=== PATIENT | female | born 1975 | race Caucasian/White ===

== ENCOUNTER 2019-04-05 13:27 | Inpatient (IN) | payer OTHER ==
--- NOTE | 2019-04-05 13:38 | PDOC ---
Rapid Medical Evaluation Time Seen by Provider: 04/05/19 13:36 Medical Evaluation: Allergies Allergy/AdvReac Type Severity Reaction Status Date / Time No Known Allergies Allergy Verified 09/27/12 10:10 04/05/19 13:36 I have performed a brief in-person evaluation of this patient. The patient presents with a chief complaint of:epigastric pain w/ vomiting. H/o HLD Pertinent physical exam findings:HR 101 w/ minimal ttp to epigastrium I have ordered the following:labs/ekg The patient will proceed to the ED for further evaluation. 04/05/19 13:47 Discharge Disposition - Diagnosis Epigastric abdominal pain - Discharge Dispostion Condition at time of disposition: Stable - Referrals - Patient Instructions - Post Discharge Activity
[2019-04-05] MEDS ORDERED: SODIUM CHLORIDE 1,000 ML IV STA (14:54)
[2019-04-05] MEDS ORDERED: ACETAMINOPHEN 1000 MG/100 ML VIAL (NON FORMULARY) IVPB ONE ×2 (14:55→21:52)
[2019-04-05] MEDS ORDERED: ACETAMINOPHEN INJECTION 100 ML IVPB ONE (14:58)
--- NOTE | 2019-04-05 15:02 | PDOC ---
History of Present Illness - General Chief Complaint: Pain, Acute Stated Complaint: ABD PAIN Time Seen by Provider: 04/05/19 13:36 History Source: Patient, Family (daughter) Exam Limitations: Language Barrier (Colombian only, translation per daughter) - History of Present Illness Initial Comments: 43 yo F, no PMH, 1 C section, p/w diffuse abdominal pain. Colombian speaking only , daughter providing translation. Pain began 8 days ago with multiple episodes of diffuse abdominal pain, lasting 5 minutes at a time. Yesterday, she developed nausea and had 2 episodes of vomiting. Has not tried anything at home. Endorses reduced appetite and poor intake. Denies CP, SOB, constipation/diarrhea , fevers/chills, urinary changes. 04/05/19 14:58 Past History - Past Medical History Allergies/Adverse Reactions: Allergies Allergy/AdvReac Type Severity Reaction Status Date / Time No Known Allergies Allergy Verified 09/27/12 10:10 Home Medications: Ambulatory Orders Amox-Tr/K Cl [Augmentin 500Mg Tablet] 1 tab PO BID #20 tablet 09/27/12 No Home Medications 0 dose .ROUTE UTDICT 09/27/12 COPD: No Lung CA: No - Surgical History Lung Surgery: No - Immunization History Immunization Up to Date: No - Suicide/Smoking/Psychosocial Hx Smoking Status: No Smoking History: Never smoked Have you smoked in the past 12 months: No Number of Cigarettes Smoked Daily: 0 Information on smoking cessation initiated: No Hx Alcohol Use: No Drug/Substance Use Hx: No Review of Systems - Review of Systems Able to Perform ROS?: Yes Constitutional: Yes: Loss of Appetite. No: Chills, Fever, Weakness HEENTM: No: Eye Pain, Blurred Vision, Double Vision, Throat Pain, Throat Swelling, Difficulty Swallowing, Mouth Swelling Respiratory: No: Cough, Orthopnea, Shortness of Breath Cardiac (ROS): No: Chest Pain, Irregular Heart Rate, Lightheadedness ABD/GI: Yes: Nausea, Poor Appetite, Poor Fluid Intake, Vomiting. No: Abdominal Distended, Abd. Pain w/ defecation, Blood Streaked Bowels, Constipated, Diarrhea , Difficulty Swallowing, Rectal Bleeding : Yes: Flank Pain. No: Burning, Dysuria, Discharge, Frequency Musculoskeletal: Yes: Back Pain Neurological: No: Headache, Numbness, Seizure, Tingling, Dizziness *Physical Exam - Vital Signs Last Vital Signs Temp Pulse Resp BP Pulse Ox 99.6 F 101 H 18 126/87 100 04/05/19 13:37 04/05/19 13:37 04/05/19 13:37 04/05/19 13:37 04/05/19 13:37 - Physical Exam General Appearance: Yes: Appropriately Dressed, Moderate Distress, Other (dry mucous membranes) HEENT: positive: EOMI, LENNOX, Normal ENT Inspection, Normal Voice, Symmetrical, Pharynx Normal, Hearing Grossly Normal Neck: positive: Trachea midline, Normal Thyroid, Supple Respiratory/Chest: positive: Lungs Clear, Normal Breath Sounds. 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 CBC CMP EKG Lipase 1LNS Ofirmev UA/UC upreg. 04/05/19 15:05 WBC 14.2, UA 1+ blood, 1+ ketones, 1+ protein, trace leuk esterase 04/05/19 15:41 Lipase 78 04/05/19 15:45 Ceftriaxone 1g for UTI 04/05/19 15:53 Patient reassessed, sleeping peacefully, pain improved 04/05/19 17:[address] scan. Surgery consultation placed. Plan discussed with patient and family, they are on board. 04/05/19 19:[address] Kumar. Encouraged continuous IV fluids, coverage with Zosyn, ID consult, IR consult for potential drainage, coags (T+S, PTT, PT/INR) 04/05/19 19:28 Patient complaining of feeling hot. Rectal temp 102.5. 04/05/19 21:52 Reassessed, pain down to 5/10. 04/05/19 22:06 *DC/Admit/Observation/Transfer Diagnosis at time of Disposition: Epigastric abdominal pain - Discharge Dispostion Condition at time of disposition: Stable - Referrals - Patient Instructions - Post Discharge Activity
--- NOTE | 2019-04-05 15:16 | PDOC ---
Documentation entered by Forrest Avila SCRIBE, acting as scribe for Andrew Carson MD. Andrew Carson MD: This documentation has been prepared by the Austin michel Elijah, SCRIBE, under my direction and personally reviewed by me in its entirety. I confirm that the documentation accurately reflects all work, treatment, procedures, and medical decision making performed by me. Attending Attestation - Resident Resident Name: Pancho Putnam - ED Attending Attestation I have performed the following: I have examined & evaluated the patient, The case was reviewed & discussed with the resident, I agree w/resident's findings & plan - HPI HPI: 04/05/19 14:53 Patient is a 43 year old female with no reported past medical history who presents to the ED with x8 days of abdominal pain. Patient associates nausea, x2 episodes of vomiting and decreased PO intake. Allergies: NKA Surgical History: - Physicial Exam PE: 04/05/19 15:10 Patient is awake and alert, well-nourished, in no significant distress Normocephalic, atraumatic PERRLA, EOMI, no scleral icterus mm-dry CTA RRR Abdomen is soft, nondistended, suprapubic and right upper quadrant tenderness to palpation is appreciated, bilateral CVA tenderness is noted, no guarding or rebound; - Medical Decision Making 04/05/19 15:15 Patient is a well-appearing 43-year-old female who presents with diffuse abdominal pain of 8 days, most tender in the suprapubic and right upper quadrant , associated with nausea and nonbloody, nonbilious vomiting. Patient noted to be mildly tachycardic and febrile. Differential diagnoses includes UTI versus pyelonephritis versus cholelithiasis versus acute cholecystitis versus appendicitis. Will obtain CBC/CMP/UA/ECG. We'll administer IV fluids. Will obtain CT of abdomen and pelvis. Will reassess.
[2019-04-05 15:30] LABS: BASO % 0.1 % (0-2.0); EOS % 0.1 % (0-4.5); HEMATOCRIT 31.7 % (32.4-45.2); HEMOGLOBIN 10.5 GM/dL (10.7-15.3); LYMPH % 12.2 % (8-40); MCH 28.6 pg (25.7-33.7); MCHC 33.2 g/dl (32.0-36.0); MEAN CELL VOLUME 86.4 fl (80-96); MEAN PLT VOLUME 7.8 fl (7.5-11.1); MONO % 9.8 % (3.8-10.2); NEUT % 77.8 % (42.8-82.8); PLATELET COUNT 368 K/MM3 (134-434); RBC 3.67 M/mm3 (3.60-5.2); RDW 13.9 % (11.6-15.6); WHITE BLOOD COUNT 14.2 K/mm3 (4.0-10.0)
[2019-04-05 15:39] LABS: EPI CELLS 32.7 /HPF (0-5/HPF); HYALINE CASTS 47 /lpf (0-8); PH,URINE 5.5 (5.0-8.0); URINE APPEARANCE TURBID; URINE BACTERIA 425.1 /hpf (NEGATIVE); URINE BILIRUBIN 1+ (NEGATIVE); URINE COLOR DK YELLOW; URINE GLUCOSE (UA) NEGATIVE (NEGATIVE); URINE KETONE 1+ (NEGATIVE); URINE LEUK ESTERASE TRACE (NEGATIVE); URINE NITRITE NEGATIVE (NEGATIVE); URINE PROTEIN 1+ (NEGATIVE); URINE RBC 5 /hpf (0-4); URINE WBC 14 /hpf (0-5)
[2019-04-05 15:50] LABS: ALBUMIN 3.2 g/dl (3.4-5.0); BILIRUBIN,TOTAL 0.2 mg/dL (0.2-1); BLOOD UREA NITROGEN 7.4 mg/dL (7-18); CALCIUM 8.6 mg/dL (8.5-10.1); CREATININE 0.7 mg/dL (0.55-1.3); POTASSIUM 3.4 mmol/L (3.5-5.1); TOT PROT 7.1 g/dl (6.4-8.2)
[2019-04-05] MEDS ORDERED: CEFTRIAXONE 1,000 MG in DEXTROSE 5%-WATER - 50 ML IVPB ONE (15:52)
[2019-04-05 16:04] LABS: URINE CRYSTALS AMORPHOUS SEEN /hpf
[2019-04-05] MEDS ORDERED: KCL 10 MEQ IVPB 10 MEQ/100 ML INFUS.BAG IVPB SCH (17:30)
[2019-04-05] MEDS ORDERED: CEFTRIAXONE 1 GM/50 ML BAG ONE (18:43)
[2019-04-05] MEDS ORDERED: SODIUM CHLORIDE 0.9% 500 ML INFUS.BAG IV ONE (18:55)
[2019-04-05] MEDS ORDERED: SODIUM CHLORIDE 1,000 ML IV SCH ×4 (19:00→21:31)
[2019-04-05] MEDS ORDERED: KCL 10 MEQ IVPB 10 MEQ/100 ML INFUS.BAG IVPB ONE (19:16)
[2019-04-05] MEDS: PIPERACILLIN/TAZOB 4.5 GM 4.5 GM in DEXTROSE 5%-WATER 100 ML IVPB ONE ×2 (19:33→19:54)
[2019-04-05] MEDS ORDERED: PIPERACILLIN/TAZOB 4.5 GM 4.5 GM/100 ML BAG IVPB ONE (19:44)
[2019-04-05] MEDS ORDERED: morphine CARPU-JECT 4 MG/1 ML DISP.SYRIN IVPUSH ONE (20:50)
[2019-04-05] MEDS ORDERED: morphine SULFATE 4 MG/ML VIAL ONE (21:17)
[2019-04-05] MEDS ORDERED: MORPHINE SULFATE 2 MG/ML VIAL IVPUSH PRN (21:28)
--- NOTE | 2019-04-05 21:32 | HP ---
Admitting History and Physical - Primary Care Physician PCP: Milton Watters - Admission History of Present Illness: 43 yo F, no PMH, 1 C section, p/w diffuse abdominal pain. Mauritanian speaking only , daughter providing translation. Pain began 8 days ago with multiple episodes of diffuse abdominal pain, lasting 5 minutes at a time. Yesterday, she developed nausea and had 2 episodes of vomiting. Has not tried anything at home. - Smoking History Smoking history: Never smoked Have you smoked in the past 12 months: No Aproximately how many cigarettes per day: 0 - Alcohol/Substance Use Hx Alcohol Use: No Home Medications - Allergies Allergies/Adverse Reactions: Allergies Allergy/AdvReac Type Severity Reaction Status Date / Time No Known Allergies Allergy Verified 09/27/12 10:10 - Home Medications Home Medications: Ambulatory Orders Amox-Tr/K Cl [Augmentin 500Mg Tablet] 1 tab PO BID #20 tablet 09/27/12 No Home Medications 0 dose .ROUTE UTDICT 09/27/12 Physical Examination Vital Signs: Vital Signs Temperature 99.6 F 04/05/19 15:32 Pulse Rate 109 H 04/05/19 18:54 Respiratory Rate 18 04/05/19 18:54 Blood Pressure 132/77 04/05/19 18:54 O2 Sat by Pulse Oximetry (%) 99 04/05/19 18:54 Constitutional: Yes: No Distress HENT: Yes: Atraumatic Neck: Yes: Supple Cardiovascular: Yes: Regular Rate and Rhythm Respiratory: Yes: CTA Bilaterally Gastrointestinal: Yes: Normal Bowel Sounds, Tenderness (llq /diffuse ...moderate in intensity) Extremities: Yes: WNL Neurological: Yes: Alert, Oriented Labs: CBC, BMP 04/05/19 15:11 04/05/19 15:11 Imaging - Results Cat Scan: Report Reviewed Problem List - Problems (1) Epigastric abdominal pain Assessment/Plan: prn pain meds Code(s): R10.13 - EPIGASTRIC PAIN (2) Diverticulitis Assessment/Plan: npo, ivf iv abx Code(s): K57.92 - DVTRCLI OF INTEST, PART UNSP, W/O PERF OR ABSCESS W/O BLEED Assessment/Plan Laboratory Tests 04/05/19 04/05/19 04/05/19 15:11 15:11 15:11 WBC 14.2 H RBC 3.67 Hgb 10.5 L Hct 31.7 L MCV 86.4 MCH 28.6 MCHC 33.2 RDW 13.9 Plt Count 368 MPV 7.8 Absolute Neuts (auto) 11.1 H Neutrophils % 77.8 Lymphocytes % 12.2 Monocytes % 9.8 Eosinophils % 0.1 Basophils % 0.1 Nucleated RBC % 0 Sodium 139 Potassium 3.4 L Chloride 104 Carbon Dioxide 28 Anion Gap 7 L BUN 7.4 Creatinine 0.7 Est GFR (CKD-EPI)AfAm 123.86 Est GFR (CKD-EPI)NonAf 106.87 Random Glucose 92 Calcium 8.6 Total Bilirubin 0.2 AST 17 ALT 23 Alkaline Phosphatase 106 Total Protein 7.1 Albumin 3.2 L Lipase Urine Color Urine Appearance Urine pH Ur Specific [place] Urine Protein Urine Glucose (UA) Urine Ketones Urine Blood Urine Nitrite Urine Bilirubin Urine Urobilinogen Ur Leukocyte Esterase Urine WBC (Auto) Urine RBC (Auto) Urine Casts (Auto) U Pathogenic Cast Auto U Epithel Cells (Auto) U Sm Round Cell (Auto) Urine Crystals (Auto) Urine Bacteria (Auto) Urine HCG, Qual Negative 04/05/19 04/05/19 15:11 15:11 WBC RBC Hgb Hct MCV MCH MCHC RDW Plt Count MPV Absolute Neuts (auto) Neutrophils % Lymphocytes % Monocytes % Eosinophils % Basophils % Nucleated RBC % Sodium Potassium Chloride Carbon Dioxide Anion Gap BUN Creatinine Est GFR (CKD-EPI)AfAm Est GFR (CKD-EPI)NonAf Random Glucose Calcium Total Bilirubin AST ALT Alkaline Phosphatase Total Protein Albumin Lipase 78 Urine Color Dk yellow Urine Appearance Turbid Urine pH 5.5 Ur Specific [place] 1.036 H Urine Protein 1+ H Urine Glucose (UA) Negative Urine Ketones 1+ H Urine Blood Trace Urine Nitrite Negative Urine Bilirubin 1+ H Urine Urobilinogen 1.0 Ur Leukocyte Esterase Trace Urine WBC (Auto) 14 Urine RBC (Auto) 5 Urine Casts (Auto) 47 U Pathogenic Cast Auto None seen U Epithel Cells (Auto) 32.7 U Sm Round Cell (Auto) None seen Urine Crystals (Auto) Amorphous seen Urine Bacteria (Auto) 425.1 Urine HCG, Qual Active Medications Generic Name Dose Route Start Last Admin Trade Name Freq PRN Reason Stop Dose Admin Sodium Chloride 1,000 mls @ 100 mls/hr 04/05/19 19:00 04/05/19 19:54 Normal Saline - IV 100 mls/hr ASDIR IZABELLA Administration Sodium Chloride 1,000 mls @ 100 mls/hr 04/05/19 19:30 04/05/19 19:55 Normal Saline - IV 100 mls/hr ASDIR IZABELLA Administration Piperacillin Sod/Tazobactam 100 mls @ 200 mls/hr 04/06/19 04:00 Sod 4.5 gm/ Dextrose IVPB 04/06/19 20:29 Q8H IZABELLA Protocol Piperacillin Sod/Tazobactam 100 mls @ 200 mls/hr 04/07/19 04:00 Sod 4.5 gm/ Dextrose IVPB Q8H IZABELLA Sodium Chloride 1,000 mls @ 125 mls/hr 04/05/19 21:31 Normal Saline - IV ASDIR IZABELLA Morphine Sulfate 2 mg 04/05/19 21:28 Morphine Sulfate IVPUSH Q4H PRN PAIN LEVEL 4 - 6
[2019-04-05 21:33] LABS: INR 1.25 (0.83-1.09); PROTHROMBIN TIME (PATIENT) 14.8 SEC (9.7-13.0)
[2019-04-05 21:35] LABS: ACTIVATED PTT 43.5 SECONDS (25.2-36.5)
[2019-04-05] MEDS ORDERED: FAMOTIDINE 20 MG/50 ML IVPB 20 MG/50 ML MG IVPB ONE (21:45)
[2019-04-06] MEDS ORDERED: FAMOTIDINE 20 MG/50 ML IVPB 20 MG/50 ML MG IVPB ONE (00:11)
[2019-04-06] MEDS ORDERED: MORPHINE SULFATE 2 MG/ML VIAL ONE (02:34)
[2019-04-06] MEDS ORDERED: ACETAMINOPHEN INJECTION 100 ML IVPB ONE (02:37)
[2019-04-06] MEDS ORDERED: PIPERACILLIN/TAZOB 4.5 GM 4.5 GM in DEXTROSE 5%-WATER 100 ML IVPB SCH (04:00)
[2019-04-06 04:48] VITALS: BMI 33.4
[2019-04-06] MEDS ORDERED: PIPERACILLIN/TAZOBACTAM 4.5 GM VIAL IVPB ONE (05:00)
[2019-04-06] MEDS ORDERED: DEXTROSE 5%-WATER 100 ML IVPB ONE (05:00)
[2019-04-06 07:09] LABS: BASO % 0.1 % (0-2.0); EOS % 0.2 % (0-4.5); HEMATOCRIT 28.9 % (32.4-45.2); HEMOGLOBIN 9.7 GM/dL (10.7-15.3); LYMPH % 7.7 % (8-40); MCH 28.8 pg (25.7-33.7); MCHC 33.5 g/dl (32.0-36.0); MEAN PLT VOLUME 8.1 fl (7.5-11.1); MONO % 9.2 % (3.8-10.2); NEUT % 82.8 % (42.8-82.8); PLATELET COUNT 311 K/MM3 (134-434); RBC 3.36 M/mm3 (3.60-5.2); RDW 14.1 % (11.6-15.6); WHITE BLOOD COUNT 14.1 K/mm3 (4.0-10.0)
[2019-04-06 07:24] LABS: ALBUMIN 2.6 g/dl (3.4-5.0); BILIRUBIN,TOTAL 0.4 mg/dL (0.2-1); BLOOD UREA NITROGEN 3.1 mg/dL (7-18); CALCIUM 7.7 mg/dL (8.5-10.1); CREATININE 0.5 mg/dL (0.55-1.3); TOT PROT 5.9 g/dl (6.4-8.2)
[2019-04-06 07:36] LABS: POTASSIUM 2.9 mmol/L (3.5-5.1)
--- NOTE | 2019-04-06 09:24 | CON.GI ---
Consult Consult Specialty:: GI Referred by:: Dr. Rosario Reason for Consultation:: Diverticulitis - History of Present Illness Chief Complaint: abdominal pain History of Present Illness: 43F presenting to ER last night for evaluation of 8 days of abdominal pain. She described the pain as left sided and pelvic in location, worsening last night prompting her eval. She denied rectal bleeding or diarrhea. She did have episodes oa nausea with vomiting. In the ER WBC was noted to be 14.2K. with temp 99.6 P: 101 BP: 126/87. She had a CT scan revealing diverticulosis of the sigmoid with inflammatory changes along the mid 1/3 of the sigmoid with extraluminal air c/w focal perforation along with a 4 v 3.4cm air/fluid structure c/w local perf vs. abscess. Pain persists and she is requiring IV analgesia. Temp was 102.4 9pm last night. She denied similar episodes in the past. She has never had an upper endoscopy or colonoscopy. There is no family history of colorectal cancer / IBD. 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 Place of : Other ([place]) History of Recent Travel: No Home Medications - Allergies Allergies/Adverse Reactions: Allergies Allergy/AdvReac Type Severity Reaction Status Date / Time No Known Allergies Allergy Verified 09/27/12 10:10 - Home Medications Home Medications: Ambulatory Orders Amox-Tr/K Cl [Augmentin 500Mg Tablet] 1 tab PO BID #20 tablet 09/27/12 No Home Medications 0 dose .ROUTE UTDICT 09/27/12 Family Disease History - Family Disease History Family Disease History: Other: Father (Alive: healthy), Mother (Alive: Low blood pressure), Brother (5, healthy), Sister (6, healthy), Son (2, healthy), Daughter (2, healthy) Other Family History: No family history of colorectal cancer or other GI malignancy Review of Systems - Review of Systems Constitutional: reports: Chills Cardiovascular: denies: Chest Pain Respiratory: denies: Cough Gastrointestinal: reports: Abdominal Pain, Vomiting. denies: Constipation, Diarrhea, Melena, Rectal Bleeding Genitourinary: reports: Frequency Physical Exam-GI Vital Signs: Vital Signs Temperature 102.5 F H 04/05/19 21:50 Pulse Rate 105 H 04/06/19 02:31 Respiratory Rate 25 H 04/06/19 02:31 Blood Pressure 114/73 04/06/19 02:31 O2 Sat by Pulse Oximetry (%) 96 04/06/19 02:31 Constitutional: Yes: Calm Eyes: No: Sclera Icterus Cardiovascular: Yes: Regular Rate and Rhythm Respiratory: Yes: CTA Bilaterally Gastrointestinal Inspection: Yes: Scars (Low horizontal pelvic surgical scar). No: Distention ...Auscultate: Yes: Normoactive Bowel Sounds ...Palpate: Yes: Soft, Tenderness (TTP diffusely, more prominent in the pelvis and LLQ) ...Percussion: No: Tympanitic Edema: No (No LE edema) Neurological: Yes: Alert, Oriented Labs: CBC, BMP 04/06/19 05:20 04/06/19 05:20 INR, PTT INR 1.25 (0.83-1.09) H 04/05/19 20:45 Hepatic Panel Total Bilirubin 0.4 mg/dL (0.2-1) 04/06/19 05:20 AST 13 U/L (15-37) L 04/06/19 05:20 ALT 18 U/L (13-61) 04/06/19 05:20 Alkaline Phosphatase 85 U/L (45-117) 04/06/19 05:20 Albumin 2.6 g/dl (3.4-5.0) L 04/06/19 05:20 Problem List - Problems (1) Diverticulitis Assessment/Plan: Acute complicated diverticulitis: 1st episode Still with Marked TTP on physical exam. slightly improved per the patient Surgery to see patient. Attempting conservative management with IV Abx / IR drainage of per colonic abscesss IV Abx per ID NPO IV hydration AM Labs Close monitoring of abdominal exam Code(s): K57.92 - DVTRCLI OF INTEST, PART UNSP, W/O PERF OR ABSCESS W/O BLEED
--- NOTE | 2019-04-06 10:25 | CON.ID ---
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 History of Recent Travel: No Home Medications - Allergies Allergies/Adverse Reactions: Allergies Allergy/AdvReac Type Severity Reaction Status Date / Time No Known Allergies Allergy Verified 09/27/12 10:10 - Home Medications Home Medications: Ambulatory Orders Amox-Tr/K Cl [Augmentin 500Mg Tablet] 1 tab PO BID #20 tablet 09/27/12 No Home Medications 0 dose .ROUTE UTDICT 09/27/12 Family Disease History - Family Disease History Family Disease History: Other: Father (Alive: healthy), Mother (Alive: Low blood pressure), Brother (5, healthy), Sister (6, healthy), Son (2, healthy), Daughter (2, healthy) Other Family History: No family history of colorectal cancer or other GI malignancy Physical Exam Vital Signs: Vital Signs Temperature 102.5 F H 04/05/19 21:50 Pulse Rate 105 H 04/06/19 02:31 Respiratory Rate 25 H 04/06/19 02:31 Blood Pressure 114/73 04/06/19 02:31 O2 Sat by Pulse Oximetry (%) 96 04/06/19 02:31 Labs: CBC, BMP 04/06/19 05:20 04/06/19 05:20
[2019-04-06] MEDS ORDERED: MIDAZOLAM HCL 2 MG/2 ML SINGLE DOSE VIAL IVPUSH ONE (12:00)
[2019-04-06] MEDS ORDERED: DEXTROSE 5%-WATER - 50 ML IVPB ONE ×2 (12:13→17:31)
[2019-04-06] MEDS ORDERED: PIPERACILLIN/TAZOBACTAM 3.375 GM VIAL IVPB ONE ×2 (12:13→17:31)
[2019-04-06] MEDS: PIPERACILLIN/TAZOB 3.375 GM 3.375 GM in DEXTROSE 5%-WATER - 50 ML IVPB SCH ×2 (12:18→17:38)
[2019-04-06] MEDS: KCL 10 MEQ IVPB 10 MEQ/100 ML INFUS.BAG IVPB SCH ×4 (12:46→17:41)
--- NOTE | 2019-04-06 14:06 | EKG ---
Test Reason : Blood Pressure : / mmHG Vent. Rate : 097 BPM Atrial Rate : 097 BPM P-R Int : 134 ms QRS Dur : 074 ms QT Int : 342 ms P-R-T Axes : 059 005 025 degrees QTc Int : 434 ms NORMAL SINUS RHYTHM POSSIBLE LEFT ATRIAL ENLARGEMENT BORDERLINE ECG NO PREVIOUS ECGS AVAILABLE Confirmed by ARGENIS MUJICA, RIMA ([id number]) on 04/06/2019 2:06:06 PM Referred By: Confirmed By:RIMA MORE MD
--- NOTE | 2019-04-06 14:06 | CONSULT ---
Consult Consult Specialty:: General Surgery Referred by:: Simeon Putnam Reason for Consultation:: diverticulitis with abscess - History of Present Illness Chief Complaint: abdominal pain, n/v History of Present Illness: Pt sleeping soundly on first attempt to see her night. Will return for consultation in am. 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 Travel: No Home Medications - Allergies Allergies/Adverse Reactions: Allergies Allergy/AdvReac Type Severity Reaction Status Date / Time No Known Allergies Allergy Verified 09/27/12 10:10 - Home Medications Home Medications: Ambulatory Orders NK [No Known Home Medication] 04/06/19 Family Disease History - Family Disease History Family Disease History: Other: Father (Alive: healthy), Mother (Alive: Low blood pressure), Brother (5, healthy), Sister (6, healthy), Son (2, healthy), Daughter (2, healthy) Other Family History: No family history of colorectal cancer or other GI malignancy Physical Exam Vital Signs: Vital Signs Temperature 102.5 F H 04/05/19 21:50 Pulse Rate 88 04/06/19 11:18 Respiratory Rate 21 H 04/06/19 11:18 Blood Pressure 135/82 04/06/19 11:18 O2 Sat by Pulse Oximetry (%) 100 04/06/19 11:18 Labs: CBC, BMP 04/06/19 05:20 04/06/19 05:20 Imaging - Results Cat Scan: Report Reviewed, Image Reviewed (images reviewed - sigmoid diverticulitis with abscess anterior to sigmoid in pelvis/lower abdomen, likely accessible for IR drainage, focal/local few air pockets, no gross free air, no obstruction) Problem List - Problems (1) Diverticulitis of large intestine with abscess without bleeding Code(s): K57.20 - DVTRCLI OF LG INT W PERFORATION AND ABSCESS W/O BLEEDING (2) Class 1 obesity due to excess calories without serious comorbidity with body mass index (BMI) of 33.0 to 33.9 in adult Code(s): E66.09 - OTHER OBESITY DUE TO EXCESS CALORIES; Z68.33 - BODY MASS INDEX (BMI) 33.0-33.9, ADULT
[2019-04-06] MEDS: D5-1/2NS+20 MEQ KCL - 20 MEQ/1,000 ML INFUS.BAG IV SCH (15:05)
--- NOTE | 2019-04-06 17:13 | PN ---
Progress Note, Physician History of Present Illness: feeling better - Current Medication List Current Medications: Active Medications Piperacillin Sod/Tazobactam (Sod 3.375 gm/ Dextrose) 50 mls @ 100 mls/hr IVPB Q8H-IV IZABELLA; Protocol Last Admin: 04/06/19 12:18 Dose: 100 mls/hr Potassium Chloride/Dextrose/Sod Cl (D5-1/2ns+20 Meq Kcl -) 20 meq in 1,000 mls @ 125 mls/hr IV ASDIR IZABELLA Last Admin: 04/06/19 15:05 Dose: 125 mls/hr Morphine Sulfate (Morphine Sulfate) 2 mg IVPUSH Q4H PRN PRN Reason: PAIN LEVEL 4 - 6 Last Admin: 04/06/19 09:04 Dose: 2 mg - Objective Vital Signs: Vital Signs Temperature 98.4 F 04/06/19 09:19 Pulse Rate 88 04/06/19 11:18 Respiratory Rate 21 H 04/06/19 11:18 Blood Pressure 135/82 04/06/19 11:18 O2 Sat by Pulse Oximetry (%) 100 04/06/19 11:18 Constitutional: Yes: No Distress HENT: Yes: Atraumatic Neck: Yes: Supple Cardiovascular: Yes: Regular Rate and Rhythm Respiratory: Yes: CTA Bilaterally Gastrointestinal: Yes: Normal Bowel Sounds, Tenderness (improved percutaneous tube in place) Extremities: Yes: WNL Edema: No Peripheral Pulses WNL: Yes Neurological: Yes: Alert, Oriented Labs: CBC, BMP 04/06/19 05:20 04/06/19 05:20 INR, PTT INR 1.25 (0.83-1.09) H 04/05/19 20:45 Problem List - Problems (1) Epigastric abdominal pain Assessment/Plan: prn pain meds Code(s): R10.13 - EPIGASTRIC PAIN (2) Diverticulitis Assessment/Plan: npo, ivf iv abx drainage tube in place Code(s): K57.92 - DVTRCLI OF INTEST, PART UNSP, W/O PERF OR ABSCESS W/O BLEED
[2019-04-06] MEDS ORDERED: ACETAMINOPHEN 1000 MG/100 ML VIAL (NON FORMULARY) IVPB PRN (21:51)
[2019-04-06] MEDS ORDERED: MORPHINE SULFATE 2 MG/ML VIAL IVPUSH PRN (21:52)
[2019-04-07] MEDS ORDERED: PIPERACILLIN/TAZOBACTAM 3.375 GM VIAL IVPB ONE ×3 (01:22→17:42)
[2019-04-07] MEDS ORDERED: DEXTROSE 5%-WATER - 50 ML IVPB ONE ×3 (01:23→17:42)
[2019-04-07] MEDS: PIPERACILLIN/TAZOB 3.375 GM 3.375 GM in DEXTROSE 5%-WATER - 50 ML IVPB SCH ×3 (01:35→17:54)
[2019-04-07] MEDS ORDERED: PIPERACILLIN/TAZOB 4.5 GM 4.5 GM in DEXTROSE 5%-WATER 100 ML IVPB SCH (04:00)
[2019-04-07 07:58] LABS: CALCIUM 7.9 mg/dL (8.5-10.1); CREATININE 0.5 mg/dL (0.55-1.3); POTASSIUM 3.7 mmol/L (3.5-5.1)
[2019-04-07 08:16] LABS: BASO % 0.2 % (0-2.0); EOS % 1.6 % (0-4.5); HEMATOCRIT 30.3 % (32.4-45.2); HEMOGLOBIN 10.4 GM/dL (10.7-15.3); LYMPH % 15.9 % (8-40); MCH 29.5 pg (25.7-33.7); MCHC 34.3 g/dl (32.0-36.0); MEAN CELL VOLUME 86.1 fl (80-96); MEAN PLT VOLUME 7.7 fl (7.5-11.1); MONO % 8.5 % (3.8-10.2); NEUT % 73.8 % (42.8-82.8); PLATELET COUNT 361 K/MM3 (134-434); RBC 3.52 M/mm3 (3.60-5.2); RDW 14.5 % (11.6-15.6); WHITE BLOOD COUNT 8.9 K/mm3 (4.0-10.0)
--- NOTE | 2019-04-07 09:25 | PN ---
Progress Note, Physician History of Present Illness: patient stable drain still draining - Current Medication List Current Medications: Active Medications Acetaminophen (Ofirmev Injection -) 1,000 mg IVPB Q6H PRN PRN Reason: Pain Level 4 - 10 Piperacillin Sod/Tazobactam (Sod 3.375 gm/ Dextrose) 50 mls @ 100 mls/hr IVPB Q8H-IV IZABELLA; Protocol Last Admin: 04/07/19 01:35 Dose: 100 mls/hr Potassium Chloride/Dextrose/Sod Cl (D5-1/2ns+20 Meq Kcl -) 20 meq in 1,000 mls @ 125 mls/hr IV ASDIR IZABELLA Last Admin: 04/06/19 15:05 Dose: 125 mls/hr Morphine Sulfate (Morphine Sulfate) 2 mg IVPUSH Q4H PRN PRN Reason: Pain Level 7-10 BREAKTHROUGH - Objective Vital Signs: Vital Signs Temperature 98.2 F 04/07/19 07:05 Pulse Rate 85 04/07/19 07:05 Respiratory Rate 20 04/07/19 07:05 Blood Pressure 120/72 04/07/19 07:05 O2 Sat by Pulse Oximetry (%) 100 04/06/19 11:18 Constitutional: Yes: No Distress, Calm Cardiovascular: Yes: S1, S2 Respiratory: Yes: Regular, CTA Bilaterally Gastrointestinal: Yes: Soft, Hypoactive Bowel Sounds Musculoskeletal: Yes: WNL Extremities: Yes: WNL Neurological: Yes: Alert, Oriented Psychiatric: Yes: Alert, Oriented Labs: CBC, BMP 04/07/19 06:30 04/07/19 06:30 INR, PTT INR 1.25 (0.83-1.09) H 04/05/19 20:45 Assessment/Plan Problem List - Problems (1) Epigastric abdominal pain Code(s): R10.13 - EPIGASTRIC PAIN (2) Diverticulitis Code(s): K57.92 - DVTRCLI OF INTEST, PART UNSP, W/O PERF OR ABSCESS W/O BLEED plan continue current mgmt' abx monitor drainage surgery on case
--- NOTE | 2019-04-07 11:41 | CONSULT ---
Consult Consult Specialty:: General Surgery Reason for Consultation:: intraabdominal abscess - History of Present Illness Chief Complaint: lower abdominal pain History of Present Illness: 43yo female PMH obesity presented to ED reporting 8 days of abdominal pain. She described the pain as left sided and pelvic in location, worsening last night prompting her evaluation. She denied rectal bleeding or diarrhea. She did have episodes of nausea with vomiting. In the ED WBC was noted to be 14.2K with temp 99.6 P: 101 BP: 126/87. She had a CT scan revealing diverticulosis of the sigmoid with inflammatory changes along the mid 1/3 of the sigmoid with extraluminal air c/w focal perforation along with a 4X3.4cm air/fluid structure c/w local perf vs. abscess. Pain persists and she is requiring IV analgesia. Temp was 102.4 She has never had an upper endoscopy or colonoscopy. There is no family history of colorectal cancer / IBD. We were also asked to assess. 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 History of Recent Travel: No Home Medications - Allergies Allergies/Adverse Reactions: Allergies Allergy/AdvReac Type Severity Reaction Status Date / Time No Known Allergies Allergy Verified 09/27/12 10:10 - Home Medications Home Medications: Ambulatory Orders NK [No Known Home Medication] 04/06/19 Family Disease History - Family Disease History Family Disease History: Other: Father (Alive: healthy), Mother (Alive: Low blood pressure), Brother (5, healthy), Sister (6, healthy), Son (2, healthy), Daughter (2, healthy) Other Family History: No family history of colorectal cancer or other GI malignancy Review of Systems - Review of Systems Constitutional: reports: Fever. denies: Chills Eyes: denies: Blind Spots, Recent Change in Vision HENT: denies: Difficult Swallowing, Throat Pain Neck: denies: Decreased ROM, Tenderness Respiratory: denies: Cough, SOB Gastrointestinal: reports: Abdominal Pain. denies: Diarrhea, Vomiting Genitourinary: denies: Testicular Pain, Testicular Swelling Breasts: denies: Pain, Skin Changes Musculoskeletal: denies: Muscle Pain, Muscle Cramps Integumentary: denies: Lesions, Lump, Pallor Neurological: denies: Seizure, Syncope Endocrine: denies: Unexplained Weight Gain, Unexplained Weight Loss Hematology/Lymphatic: denies: Easily Bruised, Excessive Bleeding Psychiatric: denies: Anxiety, Depression Physical Exam Vital Signs: Vital Signs Temperature 98.2 F 04/07/19 07:05 Pulse Rate 85 04/07/19 07:05 Respiratory Rate 20 04/07/19 07:05 Blood Pressure 120/72 04/07/19 07:05 O2 Sat by Pulse Oximetry (%) 100 04/06/19 11:18 Constitutional: Yes: Well Nourished, No Distress, Calm, Obese Eyes: Yes: Conjunctiva Clear, EOM Intact HENT: Yes: Atraumatic, Normocephalic Neck: Yes: Supple, Trachea Midline Cardiovascular: Yes: Regular Rate and Rhythm, S1, S2 Respiratory: Yes: Regular, CTA Bilaterally Gastrointestinal: Yes: Normal Bowel Sounds, Soft, Abdomen, Obese, Tenderness ( jennifer umbilcal and LLQ), Tenderness, Rebound. No: Hemorrhoids ...Rectal Exam: Yes: Sphincter Tone Normal. No: Hemorrhoids/External, Mass Renal/: No: CVA Tenderness - Left, CVA Tenderness - Right Breast(s): No: Mass, Nipple Inversion Musculoskeletal: No: Muscle Pain, Muscle Weakness Extremities: No: Cool, Cyanosis Edema: No Peripheral Pulses WNL: Yes Wound/Incision: Yes: Draining (LLQ IR drain), Other Neurological: Yes: Alert, Oriented Psychiatric: Yes: Alert, Oriented Labs: CBC, BMP 04/07/19 06:30 04/07/19 06:30 Imaging - Results Cat Scan: Report Reviewed, Image Reviewed Other: Report Reviewed, Image Reviewed (IR Abscess drain placement) Problem List - Problems (1) Diverticulitis of large intestine with abscess without bleeding Assessment/Plan: 43 yo female with first episode of complicated diverticulitis. No acute surgical intervention at this time. Agree with IR drainage of abscess NPO until completely abdomnial pain free, then advance diet slowly IVF hydration IV antibiotics by ID GI for bowel regimen, increased dietary fiber continue home with PO antibiotics Drain management by IR colonoscopy in 6-8weeks will follow peripeherally Thank you for the opportunity to participate in the care of this patient. Code(s): K57.20 - DVTRCLI OF LG INT W PERFORATION AND ABSCESS W/O BLEEDING (2) Obesity (BMI 30.0-34.9) Code(s): E66.9 - OBESITY, UNSPECIFIED (3) Abdominal pain in female Code(s): R10.9 - UNSPECIFIED ABDOMINAL PAIN (4) Leukocytosis Code(s): D72.829 - ELEVATED WHITE BLOOD CELL COUNT, UNSPECIFIED Qualifiers: Leukocytosis type: bandemia Qualified Code(s): D72.825 - Bandemia
[2019-04-07 11:55] LABS: BLOOD UREA NITROGEN 2.7 mg/dL (7-18)
--- NOTE | 2019-04-07 14:13 | PN ---
Progress Note, Physician - Current Medication List Current Medications: Active Medications Acetaminophen (Ofirmev Injection -) 1,000 mg IVPB Q6H PRN PRN Reason: Pain Level 4 - 10 Piperacillin Sod/Tazobactam (Sod 3.375 gm/ Dextrose) 50 mls @ 100 mls/hr IVPB Q8H-IV IZABELLA; Protocol Last Admin: 04/07/19 10:00 Dose: 100 mls/hr Potassium Chloride/Dextrose/Sod Cl (D5-1/2ns+20 Meq Kcl -) 20 meq in 1,000 mls @ 125 mls/hr IV ASDIR IZABELLA Last Admin: 04/06/19 15:05 Dose: 125 mls/hr Morphine Sulfate (Morphine Sulfate) 2 mg IVPUSH Q4H PRN PRN Reason: Pain Level 7-10 BREAKTHROUGH - Objective Vital Signs: Vital Signs Temperature 97.7 F 04/07/19 09:00 Pulse Rate 88 04/07/19 11:00 Respiratory Rate 18 04/07/19 11:00 Blood Pressure 121/61 04/07/19 11:00 O2 Sat by Pulse Oximetry (%) 100 04/07/19 11:00 Constitutional: Yes: No Distress HENT: Yes: Atraumatic Neck: Yes: Supple Cardiovascular: Yes: Regular Rate and Rhythm Respiratory: Yes: CTA Bilaterally Gastrointestinal: Yes: Tenderness, Other (tube in place) Extremities: Yes: WNL Edema: No Peripheral Pulses WNL: Yes Neurological: Yes: Alert, Oriented Labs: CBC, BMP 04/07/19 06:30 04/07/19 06:30 INR, PTT INR 1.25 (0.83-1.09) H 04/05/19 20:45 Problem List - Problems (1) Epigastric abdominal pain Assessment/Plan: prn pain meds Code(s): R10.13 - EPIGASTRIC PAIN (2) Diverticulitis Assessment/Plan: npo, ivf iv abx drainage tube in place Code(s): K57.92 - DVTRCLI OF INTEST, PART UNSP, W/O PERF OR ABSCESS W/O BLEED
--- NOTE | 2019-04-07 15:48 | PN.GI ---
GI Progress Note Subjective: S/P IR Drainage. JATIN drain contains purulent liquid States feeling better. Some tenderness at drain site - Objective Vital Signs: Vital Signs Temperature 97.7 F 04/07/19 09:00 Pulse Rate 88 04/07/19 11:00 Respiratory Rate 18 04/07/19 11:00 Blood Pressure 121/61 04/07/19 11:00 O2 Sat by Pulse Oximetry (%) 100 04/07/19 11:00 Constitutional: Calm Eyes: No: Sclera Icterus Cardiovascular: Yes: Regular Rate and Rhythm Respiratory: Yes: CTA Bilaterally Gastrointestinal Inspection: Yes: Other (Drain in lower abdomen, dressing in place, tenderness at insertion site). No: Distention ...Auscultate: Yes: Normoactive Bowel Sounds ...Palpate: Yes: Soft ...Percussion: No: Tympanitic Edema: No (No LE edmea) Neurological: Yes: Alert Labs: CBC, BMP 04/07/19 06:30 04/07/19 06:30 INR, PTT INR 1.25 (0.83-1.09) H 04/05/19 20:45 Problem List - Problems (1) Diverticulitis Assessment/Plan: Complicated sigmoid diverticulitis: S/P IR drain: Abx and timing of repeat imaging per ID Surgical F/U NPO IV hydration Monitor daily labs Code(s): K57.92 - DVTRCLI OF INTEST, PART UNSP, W/O PERF OR ABSCESS W/O BLEED
[2019-04-07] MEDS: D5-1/2NS+20 MEQ KCL - 20 MEQ/1,000 ML INFUS.BAG IV SCH (19:44)
[2019-04-08] MEDS ORDERED: PIPERACILLIN/TAZOBACTAM 3.375 GM VIAL IVPB ONE ×3 (01:00→17:51)
[2019-04-08] MEDS ORDERED: DEXTROSE 5%-WATER - 50 ML IVPB ONE ×3 (01:01→17:51)
[2019-04-08] MEDS: PIPERACILLIN/TAZOB 3.375 GM 3.375 GM in DEXTROSE 5%-WATER - 50 ML IVPB SCH ×3 (01:18→17:58)
[2019-04-08] MEDS: D5-1/2NS+20 MEQ KCL - 20 MEQ/1,000 ML INFUS.BAG IV SCH ×2 (04:01→12:14)
[2019-04-08 08:17] LABS: BASO % 0.5 % (0-2.0); EOS % 4.3 % (0-4.5); HEMATOCRIT 29.4 % (32.4-45.2); LYMPH % 32.1 % (8-40); MCH 29.3 pg (25.7-33.7); MCHC 33.8 g/dl (32.0-36.0); MEAN CELL VOLUME 86.5 fl (80-96); MEAN PLT VOLUME 7.8 fl (7.5-11.1); MONO % 12.7 % (3.8-10.2); NEUT % 50.4 % (42.8-82.8); PLATELET COUNT 394 K/MM3 (134-434); WHITE BLOOD COUNT 5.3 K/mm3 (4.0-10.0)
[2019-04-08 08:43] LABS: CALCIUM 8.1 mg/dL (8.5-10.1); CREATININE 0.5 mg/dL (0.55-1.3); POTASSIUM 4.1 mmol/L (3.5-5.1)
[2019-04-08 08:54] LABS: BLOOD UREA NITROGEN 2.1 mg/dL (7-18)
--- NOTE | 2019-04-08 12:04 | PN.GI ---
GI Progress Note Subjective: No acute events 20cc purulent drainage in JATIN drain overnight patient overall states feeling better. Still with some LLQ / pelvic pain. States that she is hungry - Objective Vital Signs: Vital Signs Temperature 97.8 F 04/08/19 10:56 Pulse Rate 71 04/08/19 10:56 Respiratory Rate 18 04/08/19 10:56 Blood Pressure 110/59 L 04/08/19 10:56 O2 Sat by Pulse Oximetry (%) 100 04/07/19 21:00 Constitutional: Calm Eyes: No: Sclera Icterus Cardiovascular: Yes: Regular Rate and Rhythm Respiratory: Yes: CTA Bilaterally Gastrointestinal Inspection: Yes: Other (JATIN drain in place lower abdomen with purulent drainage). No: Distention ...Auscultate: Yes: Normoactive Bowel Sounds ...Palpate: Yes: Soft, Tenderness ...Percussion: No: Tympanitic Edema: No (No LE edema) Neurological: Yes: Alert (No LE edema) Labs: CBC, BMP 04/08/19 06:45 04/08/19 06:45 INR, PTT INR 1.25 (0.83-1.09) H 04/05/19 20:45 Laboratory Tests 04/07/19 04/08/19 06:30 06:45 C-Reactive Protein 17.4 H 8.9 H Problem List - Problems (1) Diverticulitis Assessment/Plan: Complicated sigmoid diverticulitis: Clinically improved: Surgery following. NPO for now. Diet advancement per surgery IV abx per ID IV hydration Timing of repeat imaging of abdomen per ID/Surgery AM labs should be ordered daily Code(s): K57.92 - DVTRCLI OF INTEST, PART UNSP, W/O PERF OR ABSCESS W/O BLEED
--- NOTE | 2019-04-08 16:54 | PN ---
Progress Note, Physician History of Present Illness: Pt seen and examined. Events noted. Pt afebrile, without any specific complaints. Lt lower abd pain only with deep palpation. Daughter at bedside provided translation. - Current Medication List Current Medications: Active Medications Acetaminophen (Ofirmev Injection -) 1,000 mg IVPB Q6H PRN PRN Reason: Pain Level 4 - 10 Piperacillin Sod/Tazobactam (Sod 3.375 gm/ Dextrose) 50 mls @ 100 mls/hr IVPB Q8H-IV IZABELLA; Protocol Last Admin: 04/08/19 09:43 Dose: 100 mls/hr Potassium Chloride/Dextrose/Sod Cl (D5-1/2ns+20 Meq Kcl -) 20 meq in 1,000 mls @ 125 mls/hr IV ASDIR IZABELLA Last Admin: 04/08/19 12:14 Dose: 125 mls/hr Morphine Sulfate (Morphine Sulfate) 2 mg IVPUSH Q4H PRN PRN Reason: Pain Level 7-10 BREAKTHROUGH - Objective Vital Signs: Vital Signs Temperature 98.3 F 04/08/19 15:23 Pulse Rate 66 04/08/19 15:23 Respiratory Rate 18 04/08/19 15:23 Blood Pressure 118/75 04/08/19 15:23 O2 Sat by Pulse Oximetry (%) 96 04/08/19 09:00 Constitutional: Yes: No Distress, Calm Cardiovascular: Yes: Regular Rate and Rhythm Respiratory: Yes: Regular Gastrointestinal: Yes: Normal Bowel Sounds, Soft, Tenderness (LLL quadrant pain with deep palpation), Other (Lower abd drain +purulent drainage) Genitourinary: Yes: WNL Extremities: Yes: WNL Integumentary: Yes: WNL Wound/Incision: Yes: Dressing Dry and Intact Neurological: Yes: Alert Labs: CBC, BMP 04/08/19 06:45 04/08/19 06:45 INR, PTT INR 1.25 (0.83-1.09) H 04/05/19 20:45 Microbiology 04/06/19 11:13 Abdomen Gram Stain - Final 04/06/19 11:13 Abdomen Body Fluid Culture - Preliminary Escherichia Coli Alpha Hemolytic Streptococcus Anaerobic Gram Neg Bacilli 04/05/19 09:50 Blood - Peripheral Venous Blood Culture - Preliminary NO GROWTH OBTAINED AFTER 48 HOURS, INCUBATION TO CONTINUE FOR 3 DAYS. 04/06/19 04:32 Blood - Peripheral Venous Blood Culture - Preliminary NO GROWTH OBTAINED AFTER 48 HOURS, INCUBATION TO CONTINUE FOR 3 DAYS. 04/06/19 11:13 Abdomen AFB Smear Concentration - Preliminary 04/05/19 18:45 Urine - Urine Clean Catch Urine Culture - Final Gram Negative Manoj 04/06/19 11:13 Abdomen ANNEL Preparation - Preliminary 04/06/19 11:13 Abdomen Fungal Culture - Preliminary - ....Imaging Chest X-ray: Report Reviewed X-ray: Pending Cat Scan: Report Reviewed Problem List - Problems (1) Diverticulitis of large intestine with abscess without bleeding Code(s): K57.20 - DVTRCLI OF LG INT W PERFORATION AND ABSCESS W/O BLEEDING Assessment/Plan Sigmoid diverticulitis with abscess s/p IR drainage -- fever/leukocytosis resolved -- continue Zosyn for now -- f/u AXR -- surgery following -- continue monitor drain output
--- NOTE | 2019-04-08 18:28 | PN ---
Progress Note, Physician History of Present Illness: no acute events family in room npo - Current Medication List Current Medications: Active Medications Acetaminophen (Ofirmev Injection -) 1,000 mg IVPB Q6H PRN PRN Reason: Pain Level 4 - 10 Piperacillin Sod/Tazobactam (Sod 3.375 gm/ Dextrose) 50 mls @ 100 mls/hr IVPB Q8H-IV IZABELLA; Protocol Last Admin: 04/08/19 17:58 Dose: 100 mls/hr Potassium Chloride/Dextrose/Sod Cl (D5-1/2ns+20 Meq Kcl -) 20 meq in 1,000 mls @ 125 mls/hr IV ASDIR IZABELLA Last Admin: 04/08/19 12:14 Dose: 125 mls/hr Morphine Sulfate (Morphine Sulfate) 2 mg IVPUSH Q4H PRN PRN Reason: Pain Level 7-10 BREAKTHROUGH - Objective Vital Signs: Vital Signs Temperature 97.6 F 04/08/19 18:00 Pulse Rate 65 04/08/19 18:00 Respiratory Rate 18 04/08/19 18:00 Blood Pressure 118/70 04/08/19 18:00 O2 Sat by Pulse Oximetry (%) 96 04/08/19 09:00 Constitutional: Yes: No Distress HENT: Yes: Atraumatic Neck: Yes: Supple Cardiovascular: Yes: Regular Rate and Rhythm Respiratory: Yes: CTA Bilaterally Gastrointestinal: Yes: Normal Bowel Sounds, Other (tube in place) Extremities: Yes: WNL Edema: No Neurological: Yes: Alert, Oriented Labs: CBC, BMP 04/08/19 06:45 04/08/19 06:45 INR, PTT INR 1.25 (0.83-1.09) H 04/05/19 20:45 Problem List - Problems (1) Epigastric abdominal pain Assessment/Plan: prn pain meds much better now Code(s): R10.13 - EPIGASTRIC PAIN (2) Diverticulitis Assessment/Plan: npo, ivf iv abx drainage tube in place Code(s): K57.92 - DVTRCLI OF INTEST, PART UNSP, W/O PERF OR ABSCESS W/O BLEED (3) Diverticulitis of large intestine with complication Code(s): K57.32 - DVTRCLI OF LG INT W/O PERFORATION OR ABSCESS W/O BLEEDING (4) Diverticulitis of large intestine with abscess without bleeding Code(s): K57.20 - DVTRCLI OF LG INT W PERFORATION AND ABSCESS W/O BLEEDING
[2019-04-09] MEDS ORDERED: DEXTROSE 5%-WATER - 50 ML IVPB ONE ×3 (01:15→17:56)
[2019-04-09] MEDS ORDERED: PIPERACILLIN/TAZOBACTAM 3.375 GM VIAL IVPB ONE ×3 (01:15→17:56)
[2019-04-09] MEDS: PIPERACILLIN/TAZOB 3.375 GM 3.375 GM in DEXTROSE 5%-WATER - 50 ML IVPB SCH ×3 (01:27→17:59)
[2019-04-09 07:33] LABS: BASO % 0.6 % (0-2.0); EOS % 4.2 % (0-4.5); HEMATOCRIT 31.3 % (32.4-45.2); HEMOGLOBIN 10.4 GM/dL (10.7-15.3); LYMPH % 35.6 % (8-40); MCH 28.7 pg (25.7-33.7); MCHC 33.2 g/dl (32.0-36.0); MEAN CELL VOLUME 86.6 fl (80-96); MEAN PLT VOLUME 7.6 fl (7.5-11.1); MONO % 10.9 % (3.8-10.2); NEUT % 48.7 % (42.8-82.8); PLATELET COUNT 443 K/MM3 (134-434); RBC 3.62 M/mm3 (3.60-5.2); RDW 14.1 % (11.6-15.6)
[2019-04-09 07:48] LABS: BLOOD UREA NITROGEN 3.7 mg/dL (7-18); CALCIUM 8.4 mg/dL (8.5-10.1); CREATININE 0.7 mg/dL (0.55-1.3); POTASSIUM 4.4 mmol/L (3.5-5.1)
[2019-04-09] MEDS: D5-1/2NS+20 MEQ KCL - 20 MEQ/1,000 ML INFUS.BAG IV SCH ×3 (10:07→18:10)
--- NOTE | 2019-04-09 12:33 | PN ---
Progress Note, Physician - Current Medication List Current Medications: Active Medications Acetaminophen (Ofirmev Injection -) 1,000 mg IVPB Q6H PRN PRN Reason: Pain Level 4 - 10 Potassium Chloride/Dextrose/Sod Cl (D5-1/2ns+20 Meq Kcl -) 20 meq in 1,000 mls @ 125 mls/hr IV ASDIR IZABELLA Last Admin: 04/09/19 11:44 Dose: Not Given Morphine Sulfate (Morphine Sulfate) 2 mg IVPUSH Q4H PRN PRN Reason: Pain Level 7-10 BREAKTHROUGH - Objective Vital Signs: Vital Signs Temperature 98.1 F 04/09/19 11:24 Pulse Rate 64 04/09/19 11:24 Respiratory Rate 18 04/09/19 11:24 Blood Pressure 107/66 04/09/19 11:24 O2 Sat by Pulse Oximetry (%) 98 04/08/19 21:00 Constitutional: Yes: No Distress HENT: Yes: Atraumatic Neck: Yes: Supple Cardiovascular: Yes: Regular Rate and Rhythm Respiratory: Yes: CTA Bilaterally Gastrointestinal: Yes: Normal Bowel Sounds Extremities: Yes: WNL Edema: No Peripheral Pulses WNL: Yes Neurological: Yes: Alert, Oriented Labs: CBC, BMP 04/09/19 06:23 04/09/19 06:23 INR, PTT INR 1.25 (0.83-1.09) H 04/05/19 20:45 Problem List - Problems (1) Epigastric abdominal pain Assessment/Plan: prn pain meds much better now Code(s): R10.13 - EPIGASTRIC PAIN (2) Diverticulitis Assessment/Plan: npo, ivf iv abx drainage tube in place Code(s): K57.92 - DVTRCLI OF INTEST, PART UNSP, W/O PERF OR ABSCESS W/O BLEED (3) Diverticulitis of large intestine with complication Code(s): K57.32 - DVTRCLI OF LG INT W/O PERFORATION OR ABSCESS W/O BLEEDING (4) Diverticulitis of large intestine with abscess without bleeding Code(s): K57.20 - DVTRCLI OF LG INT W PERFORATION AND ABSCESS W/O BLEEDING
--- NOTE | 2019-04-09 12:43 | PN ---
Progress Note, Physician Chief Complaint: abdominal pain History of Present Illness: 43yo female PMH obesity presented to ED reporting 8 days of abdominal pain. She described the pain as left sided and pelvic in location, worsening last night prompting her evaluation. she has persistent LLQ abdominal pain. - Current Medication List Current Medications: Active Medications Acetaminophen (Ofirmev Injection -) 1,000 mg IVPB Q6H PRN PRN Reason: Pain Level 4 - 10 Potassium Chloride/Dextrose/Sod Cl (D5-1/2ns+20 Meq Kcl -) 20 meq in 1,000 mls @ 125 mls/hr IV ASDIR IZABELLA Last Admin: 04/09/19 11:44 Dose: Not Given Morphine Sulfate (Morphine Sulfate) 2 mg IVPUSH Q4H PRN PRN Reason: Pain Level 7-10 BREAKTHROUGH - Objective Vital Signs: Vital Signs Temperature 98.1 F 04/09/19 11:24 Pulse Rate 64 04/09/19 11:24 Respiratory Rate 18 04/09/19 11:24 Blood Pressure 107/66 04/09/19 11:24 O2 Sat by Pulse Oximetry (%) 98 04/08/19 21:00 Constitutional: Yes: Well Nourished, No Distress, Calm, Obese Eyes: Yes: Conjunctiva Clear, EOM Intact HENT: Yes: Atraumatic, Normocephalic Neck: Yes: Supple, Trachea Midline Cardiovascular: Yes: Regular Rate and Rhythm, S1, S2 Respiratory: Yes: Regular, CTA Bilaterally Gastrointestinal: Yes: Normal Bowel Sounds, Soft, Abdomen, Obese, Tenderness ( LLQ). No: Palpable Mass, Tenderness, Epigastrium, Tenderness, Rebound Genitourinary: No: CVA Tenderness - Left, CVA Tenderness - Right Breast(s): No: Mass, Skin Changes Musculoskeletal: No: Muscle Pain, Muscle Weakness Extremities: No: Cool Edema: No Peripheral Pulses WNL: Yes Peripheral Pulses: Left Radial: 2+, Right Radial: 2+, Left Doralis Pedis: 2+, Right Dorsalis Pedis: 2+, Left Femoral: 2+, Right Femoral: 2+ Integumentary: No: Jaundice, Rash, Venous Stasis Changes Wound/Incision: Yes: Draining (midline & LLQ IR drain) Neurological: Yes: Alert, Oriented Psychiatric: Yes: Alert, Oriented Labs: CBC, BMP 04/09/19 06:23 04/09/19 06:23 INR, PTT INR 1.25 (0.83-1.09) H 04/05/19 20:45 Problem List - Problems (1) Diverticulitis of large intestine with abscess without bleeding Assessment/Plan: 43 yo female with first episode of complicated diverticulitis. No acute surgical intervention at this time. Agree with IR drainage of abscess NPO until completely abdomnial pain free, then advance diet slowly IVF hydration IV antibiotics by ID GI for bowel regimen, increased dietary fiber continue home with PO antibiotics Drain management by IR colonoscopy in 6-8weeks recall surgery as needed Code(s): K57.20 - DVTRCLI OF LG INT W PERFORATION AND ABSCESS W/O BLEEDING (2) Obesity (BMI 30.0-34.9) Code(s): E66.9 - OBESITY, UNSPECIFIED (3) Abdominal pain in female Code(s): R10.9 - UNSPECIFIED ABDOMINAL PAIN (4) Leukocytosis Code(s): D72.829 - ELEVATED WHITE BLOOD CELL COUNT, UNSPECIFIED Qualifiers: Leukocytosis type: bandemia Qualified Code(s): D72.825 - Bandemia
--- NOTE | 2019-04-09 16:34 | PN ---
Progress Note, Physician History of Present Illness: Pt remains alert, afebrile, comfortable. Minimal lower abd pain. No specific complaints. States she is hungry. - Current Medication List Current Medications: Active Medications Acetaminophen (Ofirmev Injection -) 1,000 mg IVPB Q6H PRN PRN Reason: Pain Level 4 - 10 Potassium Chloride/Dextrose/Sod Cl (D5-1/2ns+20 Meq Kcl -) 20 meq in 1,000 mls @ 125 mls/hr IV ASDIR IZABELLA Last Admin: 04/09/19 11:44 Dose: Not Given Morphine Sulfate (Morphine Sulfate) 2 mg IVPUSH Q4H PRN PRN Reason: Pain Level 7-10 BREAKTHROUGH - Objective Vital Signs: Vital Signs Temperature 98.1 F 04/09/19 11:24 Pulse Rate 64 04/09/19 11:24 Respiratory Rate 18 04/09/19 11:24 Blood Pressure 107/66 04/09/19 11:24 O2 Sat by Pulse Oximetry (%) 98 04/08/19 21:00 Constitutional: Yes: No Distress, Calm Cardiovascular: Yes: Regular Rate and Rhythm Respiratory: Yes: Regular Gastrointestinal: Yes: Normal Bowel Sounds, Soft, Tenderness (minimal abd pain with palpation, +drain with small amount purulent fluid) Genitourinary: Yes: WNL Integumentary: Yes: WNL Neurological: Yes: Alert Labs: CBC, BMP 04/09/19 06:23 04/09/19 06:23 INR, PTT INR 1.25 (0.83-1.09) H 04/05/19 20:45 Microbiology 04/06/19 11:13 Abdomen Gram Stain - Final 04/06/19 11:13 Abdomen Body Fluid Culture - Final Escherichia Coli Alpha Hemolytic Streptococcus 04/06/19 11:13 Abdomen Anaerobic Culture - Final Prevotella Species 04/05/19 09:50 Blood - Peripheral Venous Blood Culture - Preliminary NO GROWTH OBTAINED AFTER 72 HOURS, INCUBATION TO CONTINUE FOR 2 DAYS. 04/06/19 04:32 Blood - Peripheral Venous Blood Culture - Preliminary NO GROWTH OBTAINED AFTER 72 HOURS, INCUBATION TO CONTINUE FOR 2 DAYS. 04/06/19 11:13 Abdomen AFB Smear Concentration - Preliminary 04/05/19 18:45 Urine - Urine Clean Catch Urine Culture - Final Gram Negative Manoj 04/06/19 11:13 Abdomen ANNEL Preparation - Preliminary 04/06/19 11:13 Abdomen Fungal Culture - Preliminary Problem List - Problems (1) Diverticulitis of large intestine with abscess without bleeding Code(s): K57.20 - DVTRCLI OF LG INT W PERFORATION AND ABSCESS W/O BLEEDING Assessment/Plan Sigmoid diverticulitis with abscess s/p IR drainage -- continue Zosyn -- AXR reported as not suggestive of SBO -- surgery follow up -- currently npo pt afebrile, pain controlled
[2019-04-10] MEDS ORDERED: DEXTROSE 5%-WATER - 50 ML IVPB ONE ×4 (00:36→23:48)
[2019-04-10] MEDS ORDERED: PIPERACILLIN/TAZOBACTAM 3.375 GM VIAL IVPB ONE ×4 (00:36→23:48)
[2019-04-10] MEDS: PIPERACILLIN/TAZOB 3.375 GM 3.375 GM in DEXTROSE 5%-WATER - 50 ML IVPB SCH ×3 (01:17→17:26)
[2019-04-10 07:13] LABS: BLOOD UREA NITROGEN 3.1 mg/dL (7-18); CALCIUM 8.3 mg/dL (8.5-10.1); CREATININE 0.8 mg/dL (0.55-1.3); POTASSIUM 4.2 mmol/L (3.5-5.1)
[2019-04-10 08:13] LABS: BASO % 0.3 % (0-2.0); EOS % 3.4 % (0-4.5); HEMATOCRIT 30.1 % (32.4-45.2); LYMPH % 39.2 % (8-40); MCH 28.9 pg (25.7-33.7); MCHC 33.3 g/dl (32.0-36.0); MEAN CELL VOLUME 86.7 fl (80-96); MEAN PLT VOLUME 7.4 fl (7.5-11.1); MONO % 9.6 % (3.8-10.2); NEUT % 47.5 % (42.8-82.8); PLATELET COUNT 467 K/MM3 (134-434); RBC 3.47 M/mm3 (3.60-5.2); RDW 14.2 % (11.6-15.6); WHITE BLOOD COUNT 5.1 K/mm3 (4.0-10.0)
[2019-04-10] MEDS: D5-1/2NS+20 MEQ KCL - 20 MEQ/1,000 ML INFUS.BAG IV SCH ×4 (10:06→20:51)
--- NOTE | 2019-04-10 11:50 | PN ---
Progress Note, Physician History of Present Illness: stable no new issues - Current Medication List Current Medications: Active Medications Acetaminophen (Ofirmev Injection -) 1,000 mg IVPB Q6H PRN PRN Reason: Pain Level 4 - 10 Potassium Chloride/Dextrose/Sod Cl (D5-1/2ns+20 Meq Kcl -) 20 meq in 1,000 mls @ 125 mls/hr IV ASDIR IZABELLA Last Admin: 04/10/19 10:06 Dose: Not Given Piperacillin Sod/Tazobactam (Sod 3.375 gm/ Dextrose) 50 mls @ 100 mls/hr IVPB Q8H-IV IZABELLA; Protocol Last Admin: 04/10/19 10:05 Dose: 100 mls/hr Morphine Sulfate (Morphine Sulfate) 2 mg IVPUSH Q4H PRN PRN Reason: Pain Level 7-10 BREAKTHROUGH - Objective Vital Signs: Vital Signs Temperature 97.9 F 04/10/19 06:00 Pulse Rate 61 04/10/19 06:00 Respiratory Rate 20 04/10/19 06:00 Blood Pressure 119/60 04/10/19 06:00 O2 Sat by Pulse Oximetry (%) 98 04/09/19 20:58 Constitutional: Yes: No Distress, Calm Cardiovascular: Yes: S1, S2 Respiratory: Yes: Regular, CTA Bilaterally Gastrointestinal: Yes: Normal Bowel Sounds, Soft, Other (drain in place) Musculoskeletal: Yes: WNL Extremities: Yes: WNL Neurological: Yes: Alert, Oriented Psychiatric: Yes: Alert, Oriented Labs: CBC, BMP 04/10/19 06:07 04/10/19 06:07 INR, PTT INR 1.25 (0.83-1.09) H 04/05/19 20:45 Assessment/Plan Problem List - Problems (1) Epigastric abdominal pain Code(s): R10.13 - EPIGASTRIC PAIN (2) Diverticulitis Code(s): K57.92 - DVTRCLI OF INTEST, PART UNSP, W/O PERF OR ABSCESS W/O BLEED plan continue current mgmt' abx monitor drainage surgery on case
[2019-04-10 14:33] LABS: ANISOCYTOSIS 1+; MACROCYTOSIS 0; PLATELET ESTIMATE NORMAL
--- NOTE | 2019-04-10 15:44 | PN ---
Progress Note, Physician Chief Complaint: abdominal pain History of Present Illness: 43yo female PMH obesity presented to ED reporting 8 days of abdominal pain. She described the pain as left sided and pelvic in location, worsening last night prompting her evaluation. she has persistent but improved LLQ abdominal pain. - Current Medication List Current Medications: Active Medications Acetaminophen (Ofirmev Injection -) 1,000 mg IVPB Q6H PRN PRN Reason: Pain Level 4 - 10 Potassium Chloride/Dextrose/Sod Cl (D5-1/2ns+20 Meq Kcl -) 20 meq in 1,000 mls @ 125 mls/hr IV ASDIR IZABELLA Last Admin: 04/10/19 11:59 Dose: 125 mls/hr Piperacillin Sod/Tazobactam (Sod 3.375 gm/ Dextrose) 50 mls @ 100 mls/hr IVPB Q8H-IV IZABELLA; Protocol Last Admin: 04/10/19 10:05 Dose: 100 mls/hr Morphine Sulfate (Morphine Sulfate) 2 mg IVPUSH Q4H PRN PRN Reason: Pain Level 7-10 BREAKTHROUGH - Objective Vital Signs: Vital Signs Temperature 98.7 F 04/10/19 12:00 Pulse Rate 58 L 04/10/19 12:00 Respiratory Rate 20 04/10/19 12:00 Blood Pressure 108/76 04/10/19 12:00 O2 Sat by Pulse Oximetry (%) 98 04/09/19 20:58 Constitutional: Yes: No Distress, Calm, Obese Eyes: Yes: Conjunctiva Clear, EOM Intact HENT: Yes: Atraumatic, Normocephalic Neck: Yes: Supple, Trachea Midline Cardiovascular: Yes: Regular Rate and Rhythm, S1, S2 Respiratory: Yes: Regular, CTA Bilaterally Gastrointestinal: Yes: Normal Bowel Sounds, Soft, Tenderness (less than previous ) ...Rectal Exam: Yes: Deferred Genitourinary: No: CVA Tenderness - Left, CVA Tenderness - Right Breast(s): No: Mass, Skin Changes Musculoskeletal: No: Muscle Pain, Muscle Weakness Extremities: No: Cool, Cyanosis Edema: No Peripheral Pulses WNL: Yes Peripheral Pulses: Left Radial: 2+, Right Radial: 2+, Left Doralis Pedis: 2+, Right Dorsalis Pedis: 2+, Left Femoral: 2+, Right Femoral: 2+ Integumentary: No: Jaundice, Rash Neurological: Yes: Alert, Oriented Psychiatric: Yes: Alert, Oriented Labs: CBC, BMP 04/10/19 06:07 04/10/19 06:07 INR, PTT INR 1.25 (0.83-1.09) H 04/05/19 20:45 Problem List - Problems (1) Diverticulitis of large intestine with abscess without bleeding Assessment/Plan: 43 yo female with first episode of complicated diverticulitis. No acute surgical intervention at this time. Reviewed repeat CT scan. Appears to be resolving. Diet per primary team GI for colonoscopy in 6-8weeks continue home with PO antibiotics Drain management by IR Out patient surgical follow-up after colonocospy in 2 months recall surgery as needed Code(s): K57.20 - DVTRCLI OF LG INT W PERFORATION AND ABSCESS W/O BLEEDING (2) Obesity (BMI 30.0-34.9) Code(s): E66.9 - OBESITY, UNSPECIFIED (3) Abdominal pain in female Code(s): R10.9 - UNSPECIFIED ABDOMINAL PAIN (4) Leukocytosis Code(s): D72.829 - ELEVATED WHITE BLOOD CELL COUNT, UNSPECIFIED Qualifiers: Leukocytosis type: bandemia Qualified Code(s): D72.825 - Bandemia
--- NOTE | 2019-04-10 16:27 | PN ---
Progress Note, Physician History of Present Illness: no pain - Current Medication List Current Medications: Active Medications Acetaminophen (Ofirmev Injection -) 1,000 mg IVPB Q6H PRN PRN Reason: Pain Level 4 - 10 Potassium Chloride/Dextrose/Sod Cl (D5-1/2ns+20 Meq Kcl -) 20 meq in 1,000 mls @ 125 mls/hr IV ASDIR IZABELLA Last Admin: 04/10/19 11:59 Dose: 125 mls/hr Piperacillin Sod/Tazobactam (Sod 3.375 gm/ Dextrose) 50 mls @ 100 mls/hr IVPB Q8H-IV IZABELLA; Protocol Last Admin: 04/10/19 10:05 Dose: 100 mls/hr Morphine Sulfate (Morphine Sulfate) 2 mg IVPUSH Q4H PRN PRN Reason: Pain Level 7-10 BREAKTHROUGH - Objective Vital Signs: Vital Signs Temperature 98.7 F 04/10/19 12:00 Pulse Rate 58 L 04/10/19 12:00 Respiratory Rate 20 04/10/19 12:00 Blood Pressure 108/76 04/10/19 12:00 O2 Sat by Pulse Oximetry (%) 98 04/09/19 20:58 HENT: Yes: Atraumatic Neck: Yes: Supple Cardiovascular: Yes: Regular Rate and Rhythm Respiratory: Yes: CTA Bilaterally Gastrointestinal: Yes: Normal Bowel Sounds, Other (tube in place, belly not tender) Extremities: Yes: WNL Edema: No Peripheral Pulses WNL: Yes Neurological: Yes: Alert, Oriented Labs: CBC, BMP 04/10/19 06:07 04/10/19 06:07 INR, PTT INR 1.25 (0.83-1.09) H 04/05/19 20:45 Problem List - Problems (1) Epigastric abdominal pain Assessment/Plan: prn pain meds much better now Code(s): R10.13 - EPIGASTRIC PAIN (2) Diverticulitis Assessment/Plan: clear liquid diet ivf iv abx drainage tube in place Code(s): K57.92 - DVTRCLI OF INTEST, PART UNSP, W/O PERF OR ABSCESS W/O BLEED (3) Diverticulitis of large intestine with complication Code(s): K57.32 - DVTRCLI OF LG INT W/O PERFORATION OR ABSCESS W/O BLEEDING (4) Diverticulitis of large intestine with abscess without bleeding Code(s): K57.20 - DVTRCLI OF LG INT W PERFORATION AND ABSCESS W/O BLEEDING
[2019-04-11] MEDS: PIPERACILLIN/TAZOB 3.375 GM 3.375 GM in DEXTROSE 5%-WATER - 50 ML IVPB SCH ×3 (01:23→17:27)
[2019-04-11] MEDS: D5-1/2NS+20 MEQ KCL - 20 MEQ/1,000 ML INFUS.BAG IV SCH ×3 (05:25→17:27)
[2019-04-11] MEDS ORDERED: PT OWN MED DRAWER 7, Y5N ONE (09:18)
[2019-04-11] MEDS ORDERED: PIPERACILLIN/TAZOBACTAM 3.375 GM VIAL IVPB ONE ×2 (09:18→17:25)
[2019-04-11] MEDS ORDERED: DEXTROSE 5%-WATER - 50 ML IVPB ONE ×2 (09:19→17:25)
[2019-04-11 11:50] LABS: BASO % 0.3 % (0-2.0); EOS % 3.1 % (0-4.5); HEMATOCRIT 34.4 % (32.4-45.2); HEMOGLOBIN 11.4 GM/dL (10.7-15.3); LYMPH % 35.2 % (8-40); MCH 28.8 pg (25.7-33.7); MCHC 33.3 g/dl (32.0-36.0); MEAN CELL VOLUME 86.5 fl (80-96); MEAN PLT VOLUME 7.3 fl (7.5-11.1); MONO % 8.8 % (3.8-10.2); NEUT % 52.6 % (42.8-82.8); PLATELET COUNT 512 K/MM3 (134-434); RBC 3.98 M/mm3 (3.60-5.2); RDW 14.5 % (11.6-15.6); WHITE BLOOD COUNT 6.1 K/mm3 (4.0-10.0)
--- NOTE | 2019-04-11 11:58 | PN ---
Progress Note, Physician History of Present Illness: stable no new issues - Current Medication List Current Medications: Active Medications Acetaminophen (Ofirmev Injection -) 1,000 mg IVPB Q6H PRN PRN Reason: Pain Level 4 - 10 Potassium Chloride/Dextrose/Sod Cl (D5-1/2ns+20 Meq Kcl -) 20 meq in 1,000 mls @ 125 mls/hr IV ASDIR IZABELLA Last Admin: 04/11/19 05:25 Dose: 125 mls/hr Piperacillin Sod/Tazobactam (Sod 3.375 gm/ Dextrose) 50 mls @ 100 mls/hr IVPB Q8H-IV IZABELLA; Protocol Last Admin: 04/11/19 09:20 Dose: 100 mls/hr Morphine Sulfate (Morphine Sulfate) 2 mg IVPUSH Q4H PRN PRN Reason: Pain Level 7-10 BREAKTHROUGH - Objective Vital Signs: Vital Signs Temperature 98.6 F 04/11/19 08:10 Pulse Rate 60 04/11/19 08:10 Respiratory Rate 20 04/11/19 08:10 Blood Pressure 110/76 04/11/19 08:10 O2 Sat by Pulse Oximetry (%) 99 04/10/19 21:00 Constitutional: Yes: No Distress, Calm Cardiovascular: Yes: S1, S2 Respiratory: Yes: Regular, CTA Bilaterally Gastrointestinal: Yes: Normal Bowel Sounds, Soft, Other (dav drain with minimal output now) Musculoskeletal: Yes: WNL Extremities: Yes: WNL Neurological: Yes: Alert, Oriented Psychiatric: Yes: Alert, Oriented Labs: CBC, BMP 04/11/19 11:00 INR, PTT INR 1.25 (0.83-1.09) H 04/05/19 20:45 Assessment/Plan Problem List - Problems (1) Epigastric abdominal pain Code(s): R10.13 - EPIGASTRIC PAIN (2) Diverticulitis Code(s): K57.92 - DVTRCLI OF INTEST, PART UNSP, W/O PERF OR ABSCESS W/O BLEED plan patient for ct scan of abd will see how the collection shows rest as per the team
[2019-04-11 12:11] LABS: BLOOD UREA NITROGEN 3.1 mg/dL (7-18); CALCIUM 8.9 mg/dL (8.5-10.1); CREATININE 0.9 mg/dL (0.55-1.3); POTASSIUM 4.3 mmol/L (3.5-5.1)
--- NOTE | 2019-04-11 15:07 | PN.GI ---
GI Progress Note Subjective: No acute events Patient had CT scan that I had ordered today - Objective Vital Signs: Vital Signs Temperature 98.6 F 04/11/19 08:10 Pulse Rate 60 04/11/19 08:10 Respiratory Rate 20 04/11/19 08:10 Blood Pressure 110/76 04/11/19 08:10 O2 Sat by Pulse Oximetry (%) 99 04/10/19 21:00 Constitutional: Calm Eyes: No: Sclera Icterus Cardiovascular: Yes: Regular Rate and Rhythm Gastrointestinal Inspection: Yes: Other (Drain in lower abdomen / pelvis. tenderness at the insertion site, no erythema or discharge. improved LLQ TTP). No: Distention ...Auscultate: Yes: Normoactive Bowel Sounds Edema: No (No LE edema) Neurological: Yes: Alert Labs: CBC, BMP 04/11/19 11:00 04/11/19 11:00 INR, PTT INR 1.25 (0.83-1.09) H 04/05/19 20:45 Laboratory Tests 04/09/19 04/10/19 04/11/19 06:23 06:07 11:00 C-Reactive Protein 5.0 H 2.5 H 1.7 H Problem List - Problems (1) Diverticulitis Assessment/Plan: Clinically improved: Await CT scan report Advancement of diet per surgery Length of Abx therapy and timing of pulling of drain per ID Will need colonoscopy in 6-8 weeks. Outpatient follow-up will be needed Daily labs Code(s): K57.92 - DVTRCLI OF INTEST, PART UNSP, W/O PERF OR ABSCESS W/O BLEED
--- NOTE | 2019-04-11 17:39 | PN ---
Progress Note, Physician History of Present Illness: no pain - Current Medication List Current Medications: Active Medications Acetaminophen (Ofirmev Injection -) 1,000 mg IVPB Q6H PRN PRN Reason: Pain Level 4 - 10 Potassium Chloride/Dextrose/Sod Cl (D5-1/2ns+20 Meq Kcl -) 20 meq in 1,000 mls @ 125 mls/hr IV ASDIR IZABELLA Last Admin: 04/11/19 17:27 Dose: Not Given Piperacillin Sod/Tazobactam (Sod 3.375 gm/ Dextrose) 50 mls @ 100 mls/hr IVPB Q8H-IV IZABELLA; Protocol Last Admin: 04/11/19 17:27 Dose: 100 mls/hr Morphine Sulfate (Morphine Sulfate) 2 mg IVPUSH Q4H PRN PRN Reason: Pain Level 7-10 BREAKTHROUGH - Objective Vital Signs: Vital Signs Temperature 98.6 F 04/11/19 08:10 Pulse Rate 60 04/11/19 08:10 Respiratory Rate 20 04/11/19 08:10 Blood Pressure 110/76 04/11/19 08:10 O2 Sat by Pulse Oximetry (%) 99 04/10/19 21:00 Constitutional: Yes: No Distress HENT: Yes: Atraumatic Neck: Yes: Supple Cardiovascular: Yes: Regular Rate and Rhythm Respiratory: Yes: CTA Bilaterally Gastrointestinal: Yes: Normal Bowel Sounds, Other (drainagae tube in olace, non tender belly) Extremities: Yes: WNL Edema: No Neurological: Yes: Alert, Oriented Labs: CBC, BMP 04/11/19 11:00 04/11/19 11:00 INR, PTT INR 1.25 (0.83-1.09) H 04/05/19 20:45 Problem List - Problems (1) Epigastric abdominal pain Assessment/Plan: pain almost resolved Code(s): R10.13 - EPIGASTRIC PAIN (2) Diverticulitis Assessment/Plan: clear liquid diet...tolerating ivf iv abx drainage tube in place Code(s): K57.92 - DVTRCLI OF INTEST, PART UNSP, W/O PERF OR ABSCESS W/O BLEED (3) Diverticulitis of large intestine with complication Code(s): K57.32 - DVTRCLI OF LG INT W/O PERFORATION OR ABSCESS W/O BLEEDING (4) Diverticulitis of large intestine with abscess without bleeding Code(s): K57.20 - DVTRCLI OF LG INT W PERFORATION AND ABSCESS W/O BLEEDING
[2019-04-12] MEDS ORDERED: PIPERACILLIN/TAZOBACTAM 3.375 GM VIAL IVPB ONE ×2 (00:48→10:38)
[2019-04-12] MEDS ORDERED: DEXTROSE 5%-WATER - 50 ML IVPB ONE ×2 (00:48→10:38)
[2019-04-12] MEDS: D5-1/2NS+20 MEQ KCL - 20 MEQ/1,000 ML INFUS.BAG IV SCH (00:55)
[2019-04-12] MEDS: PIPERACILLIN/TAZOB 3.375 GM 3.375 GM in DEXTROSE 5%-WATER - 50 ML IVPB SCH ×2 (01:23→10:41)
--- NOTE | 2019-04-12 11:02 | PN ---
Progress Note, Physician History of Present Illness: patient stable no new issues ct abd results noted - Current Medication List Current Medications: Active Medications Acetaminophen (Ofirmev Injection -) 1,000 mg IVPB Q6H PRN PRN Reason: Pain Level 4 - 10 Piperacillin Sod/Tazobactam (Sod 3.375 gm/ Dextrose) 50 mls @ 100 mls/hr IVPB Q8H-IV IZABELLA; Protocol Last Admin: 04/12/19 10:41 Dose: 100 mls/hr - Objective Vital Signs: Vital Signs Temperature 97.9 F 04/12/19 06:18 Pulse Rate 63 04/12/19 06:18 Respiratory Rate 20 04/12/19 06:18 Blood Pressure 120/67 04/12/19 06:18 O2 Sat by Pulse Oximetry (%) 99 04/11/19 21:00 Constitutional: Yes: No Distress, Calm Cardiovascular: Yes: S1, S2 Respiratory: Yes: Regular, CTA Bilaterally Gastrointestinal: Yes: Normal Bowel Sounds, Soft Musculoskeletal: Yes: WNL Extremities: Yes: WNL Neurological: Yes: Alert, Oriented Psychiatric: Yes: Alert, Oriented Labs: CBC, BMP 04/11/19 11:00 04/11/19 11:00 INR, PTT INR 1.25 (0.83-1.09) H 04/05/19 20:45 Assessment/Plan Problem List - Problems (1) Epigastric abdominal pain Code(s): R10.13 - EPIGASTRIC PAIN (2) Diverticulitis Code(s): K57.92 - DVTRCLI OF INTEST, PART UNSP, W/O PERF OR ABSCESS W/O BLEED plan ct abd noted will switch to oral augmentin rest continue as per the team
[2019-04-12] MEDS: AMOX TR/POT CLAV 875MG/125MG TABLETS (FP) PO SCH (17:32)
--- NOTE | 2019-04-12 17:36 | PN.GI ---
GI Progress Note Subjective: had a BM today, no abdominal pain, tolerated diet, CT no residual collection, j- p drain--minimal serous fluid, no pus - Objective Vital Signs: Vital Signs Temperature 98.2 F 04/12/19 16:27 Pulse Rate 64 04/12/19 16:27 Respiratory Rate 20 04/12/19 16:27 Blood Pressure 116/68 04/12/19 16:27 O2 Sat by Pulse Oximetry (%) 99 04/11/19 21:00 Constitutional: Well Nourished Eyes: Yes: Conjunctiva Clear HENT: Yes: Atraumatic Cardiovascular: Yes: Regular Rate and Rhythm Respiratory: Yes: CTA Bilaterally ...Palpate: Yes: Soft. No: Firm/Rigid, Guarding, Hepatomegaly, Mass, Pulsatile Mass, Splenomegaly, Tenderness Labs: CBC, BMP 04/11/19 11:00 04/11/19 11:00 INR, PTT INR 1.25 (0.83-1.09) H 04/05/19 20:45 Problem List - Problems (1) Diverticulitis of large intestine with abscess without bleeding Assessment/Plan: R> advance diet in am if ok with surgery consult IR_to consider to d/c drain Code(s): K57.20 - DVTRCLI OF LG INT W PERFORATION AND ABSCESS W/O BLEEDING
--- NOTE | 2019-04-12 19:12 | PN ---
Progress Note, Physician - Current Medication List Current Medications: Active Medications Amoxicillin/Clavulanate Potassium (Augmentin - 875mg Tablet) 1 tab PO BID@0800, 1730 IZABELLA Last Admin: 04/12/19 17:32 Dose: 1 tab - Objective Vital Signs: Vital Signs Temperature 98.2 F 04/12/19 16:27 Pulse Rate 64 04/12/19 16:27 Respiratory Rate 20 04/12/19 16:27 Blood Pressure 116/68 04/12/19 16:27 O2 Sat by Pulse Oximetry (%) 99 04/11/19 21:00 Constitutional: Yes: No Distress HENT: Yes: Atraumatic Neck: Yes: Supple Cardiovascular: Yes: Regular Rate and Rhythm Respiratory: Yes: CTA Bilaterally Gastrointestinal: Yes: Normal Bowel Sounds, Other (drain in place) Extremities: Yes: WNL Neurological: Yes: Alert, Oriented Labs: CBC, BMP 04/11/19 11:00 04/11/19 11:00 INR, PTT INR 1.25 (0.83-1.09) H 04/05/19 20:45 Problem List - Problems (1) Epigastric abdominal pain Assessment/Plan: pain almost resolved Code(s): R10.13 - EPIGASTRIC PAIN (2) Diverticulitis Assessment/Plan: clear liquid diet...tolerating ivf iv abx drainage tube in place Code(s): K57.92 - DVTRCLI OF INTEST, PART UNSP, W/O PERF OR ABSCESS W/O BLEED (3) Diverticulitis of large intestine with complication Code(s): K57.32 - DVTRCLI OF LG INT W/O PERFORATION OR ABSCESS W/O BLEEDING (4) Diverticulitis of large intestine with abscess without bleeding Code(s): K57.20 - DVTRCLI OF LG INT W PERFORATION AND ABSCESS W/O BLEEDING
--- NOTE | 2019-04-13 08:29 | PN ---
Progress Note, Physician History of Present Illness: stable no issues tolerating diet - Current Medication List Current Medications: Active Medications Amoxicillin/Clavulanate Potassium (Augmentin - 875mg Tablet) 1 tab PO BID@0800, 1730 IZABELLA Last Admin: 04/12/19 17:32 Dose: 1 tab - Objective Vital Signs: Vital Signs Temperature 98.1 F 04/13/19 06:00 Pulse Rate 61 04/13/19 06:00 Respiratory Rate 18 04/13/19 06:00 Blood Pressure 108/52 L 04/13/19 06:00 O2 Sat by Pulse Oximetry (%) 99 04/11/19 21:00 Constitutional: Yes: No Distress, Calm Cardiovascular: Yes: Regular Rate and Rhythm Respiratory: Yes: Regular, CTA Bilaterally Gastrointestinal: Yes: Normal Bowel Sounds, Soft, Other Genitourinary: Yes: WNL Musculoskeletal: Yes: WNL Extremities: Yes: WNL Neurological: Yes: Alert, Oriented Psychiatric: Yes: Alert, Oriented Labs: CBC, BMP 04/11/19 11:00 04/11/19 11:00 INR, PTT INR 1.25 (0.83-1.09) H 04/05/19 20:45 Assessment/Plan Problem List - Problems (1) Epigastric abdominal pain Code(s): R10.13 - EPIGASTRIC PAIN (2) Diverticulitis Code(s): K57.92 - DVTRCLI OF INTEST, PART UNSP, W/O PERF OR ABSCESS W/O BLEED plan ct abd noted oral augmentin rest continue as per the team give augmentin 875 mg bid for 7 more days
[2019-04-13] MEDS: AMOX TR/POT CLAV 875MG/125MG TABLETS (FP) PO SCH ×2 (08:43→18:25)
--- NOTE | 2019-04-13 16:32 | DS ---
Physical Examination Vital Signs: Vital Signs Temperature 98.2 F 04/13/19 13:35 Pulse Rate 85 04/13/19 13:35 Respiratory Rate 18 04/13/19 13:35 Blood Pressure 122/69 04/13/19 13:35 O2 Sat by Pulse Oximetry (%) 99 04/11/19 21:00 Constitutional: Yes: No Distress HENT: Yes: Atraumatic Neck: Yes: Supple Cardiovascular: Yes: Regular Rate and Rhythm Respiratory: Yes: CTA Bilaterally Gastrointestinal: Yes: Normal Bowel Sounds Extremities: Yes: WNL Neurological: Yes: Alert, Oriented Labs: CBC, BMP 04/11/19 11:00 04/11/19 11:00 Discharge Summary Reason For Visit: DIVERTICULITIS OF BOTH LRG AND SM INTESTINE WITH Current Active Problems Abdominal pain in female (Acute) Class 1 obesity due to excess calories without serious comorbidity with body mass index (BMI) of 33.0 to 33.9 in adult (Acute) Diverticulitis (Acute) Diverticulitis of large intestine with abscess without bleeding (Acute) Diverticulitis of large intestine with complication (Acute) Epigastric abdominal pain (Acute) Leukocytosis (Acute) Obesity (BMI 30.0-34.9) (Acute) Condition: Stable - Instructions Diet, Activity, Other Instructions: soft low fat diet small meals no heavy lifting until cleared by pmd see your pmd next week Referrals: Andrés Alexander MD [Staff Physician] - Dandy Mercado MD [Staff Physician] - - Home Medications Comprehensive Discharge Medication List: Ambulatory Orders Amox-Tr/K Cl [Augmentin 875-125mg Tablet -] 1 tab PO BID@0800,1730 #14 tablet tolerating diet drainage tube taken out by IR dr stack, he spoke to RN saying no abcess dc home on po augmentin follow up gi/surgery as out [atien follow up pmd 2-3 days
[2019-04-13 17:15] VITALS: BP 102/73; PULSE 80; TEMP 99
== END 2019-04-13 19:08 | disposition home or self-care (01) | DRG 229 ==
LOC: JER 13:27 → JERBED 19:47 → J8W 04-06 03:45
PROVIDERS: ADMIT Internal Medicine; ATTEND Internal Medicine
PROC: 0D9W30Z Drainage of Peritoneum with Drainage Device, Percutaneous Approach (ICD-10-PCS; principal; 2019-04-06)
PROC: 0WPG30Z Removal of Drainage Device from Peritoneal Cavity, Percutaneous Approach (ICD-10-PCS; 2019-04-13)
DX: K57.20 Diverticulitis of large intestine with perforation and abscess without bleeding (principal); E78.5 Hyperlipidemia, unspecified; B96.29 Other Escherichia coli [E. coli] as the cause of diseases classified elsewhere; B95.4 Other streptococcus as the cause of diseases classified elsewhere; E66.9 Obesity, unspecified; Z68.33 Body mass index [BMI] 33.0-33.9, adult
CPT/HCPCS: 36415; 49406; 49424; 74019-TC-FY; 74177-TC; 76000-TC-FY; 76080-TC-FY; 80048; 80053; 81003; 83690; 84703; 85025; 85610; 85730; 86140; 86850; 86900; 86901; 87040; 87070; 87075; 87076; 87077; 87086; 87102; 87116; 87186; 87205; 87206; 87210; 87899; 93005; 93010; 99285-25; C1729; C1769; J0131; J7030; Q9967